=== PATIENT | female | born 1970 | race African-American/Black ===

== ENCOUNTER 2016-12-13 05:44 | Inpatient (IN) | payer OTHER ==
[~2016-12-13] VITALS: Ht 182.9 cm; Wt 106.4 kg
[~2016-12-13 05:44] MED LIST: ANAPROX DS550 M1 PO; ASACOL HD800 MG PO; BENTYL10 MG PO; BUPROPION HCL100 M1 PO; BUPROPION HCL150 MG PO; CARBAMAZEPINE200 M1 PO; CARBATROL-ER300 MG PO; CARDIZEM CD,CA360 MG PO; CARDIZEM CD180 MG PO; CARDIZEM CD360 MG PO; CATAPRES0.1 MG PO; CATAPRES0.2 MG PO; CELEBREX200 MG PO; CENTRUM SILV1 TABLE1 PO; CIPRO500 MG PO; CLONIDINE HCL0.1 MG PO; CLONIDINE HCL0.2 MG PO; CYCLOBENZAPRINE10 M1 PO; DICYCLOMINE HCL20 MG PO; DILAUDID2 MG PO; DILTIAZEM 24HR360 M1 PO; DILTIAZEM 24HR360 MG PO; DOXYCYCLINE HY100 M3 PO; ENDOCET 7.5-321 EACH PO; Ecotrin PO; FAMOTIDINE40 MG PO; FISH OIL 1,0001 EAC7 PO; FLAGYL500 MG PO; FLEXERIL5 MG PO; FLORASTOR250 MG PO; FUROSEMIDE20 MG PO; FUROSEMIDE40 MG PO; Feosol PO; HYOSCYAMINE0.375 MG PO; KENLAOG,ARISTOC60 ML TP; LASIX20 MG PO; LASIX40 MG PO; LEVAQUIN250 MG PO; LEVAQUIN500 MG PO; LEVBID0.375 MG PO; LIDODERM 5% P1 PATCH TD; LITHIUM CARBON300 MG PO; LOPRESSOR100 M1 PO; MEDROL DOSEPAK4 MG PO; MELOXICAM15 MG PO; METOPROLOL SUC100 MG PO; METOPROLOL TAR100 MG PO; METRONIDAZOLE500 MG PO; MINIPRESS2 MG PO; MOBIC15 MG PO; MOBIC7.5 MG PO; MORPHINE SULFAT15 M1 PO; MS CONTIN,ORAMO15 M2 PO; NABUMETONE750 MG PO; NAPROSYN500 MG PO; NAPROXEN500 MG PO; NEURONTIN100 MG PO; NORVASC5 MG PO; OMEPRAZOLE20 MG PO; OMEPRAZOLE40 M1 PO; OXYCODONE-APAP1 EAC6 PO; PERCOCET 10/1 TABLET PO; PERCOCET 5/31 TABLET PO; PERCOCET 7.51 TABLET PO; PHENAZOPYRIDIN100 MG PO; PLAQUENIL200 MG PO; PRAZOSIN HCL2 MG PO; PREDNISONE10 M1 PO; PREDNISONE50 MG PO; PROAIR HFA8.5 GM IH; PYRIDIUM100 MG PO; Percocet 7.5/325,End PO; REGLAN10 MG PO; ROXICODONE5 MG PO; SENOKOT S,PE1 TABLET PO; SEROQUEL XR150 MG PO; SEROQUEL XR200 MG PO; SEROQUEL100 MG PO; SEROQUEL50 MG PO; SERTRALINE HCL100 MG PO; SKELAXIN800 MG PO; TAZTIA XT180 M1 PO; TOPROL XL100 MG PO; TRAZODONE HCL100 MG PO; TRAZODONE HCL150 MG PO; VANTIN100 MG PO; VICODIN,LORT1 TABLET PO; WELLBUTRIN SR150 MG PO; XARTEMIS XR 7.1 EACH PO; XYLOCAINE VISC100 ML MM; ZOFRAN ODT4 MG PO; ZOFRAN4 MG PO; ZOLOFT100 M1 PO; [UNRECOGNIZED DRUG - OTHER] TP
[2016-12-13 06:46] VITALS: BP 134/87
[2016-12-13 16:38] VITALS: BP 142/86
[2016-12-13 20:08] VITALS: BP 161/93
[2016-12-14 02:30] VITALS: BP 140/90
[2016-12-14 06:50] VITALS: BP 148/76
[2016-12-14 08:21] VITALS: BP 160/90
[2016-12-14 16:09] VITALS: BP 144/99
[2016-12-14 19:18] VITALS: BP 113/62
[2016-12-14 21:29] VITALS: BP 112/61
[2016-12-15 00:16] VITALS: BP 115/70
[2016-12-15 08:14] VITALS: BP 124/71
[2016-12-15 13:06] VITALS: BP 134/85
[2016-12-15 17:07] VITALS: BP 129/73
[2016-12-15 23:35] VITALS: BP 136/74
[2016-12-16 07:29] VITALS: BP 122/74
[2016-12-16 11:31] VITALS: BP 122/74
[2016-12-16] MEDS ORDERED: OXYCODONE-APAP1 EAC6 PO (11:58)
== END 2016-12-16 15:00 | disposition home or self-care (01) | DRG 460 ==
LOC: 3EAST 05:44 → 2SOUTH 05:44 → 3EAST 15:48
DX: M43.16 Spondylolisthesis, lumbar region (principal); F33.9 Major depressive disorder, recurrent, unspecified; F17.210 Nicotine dependence, cigarettes, uncomplicated; M06.9 Rheumatoid arthritis, unspecified; M51.16 Intervertebral disc disorders with radiculopathy, lumbar region; E78.00 Pure hypercholesterolemia, unspecified; Z96.653 Presence of artificial knee joint, bilateral; G89.18 Other acute postprocedural pain
CPT/HCPCS: 36415; 72100; 76000; 80048; 85025; 86850; 86900; 86901; C1713; J0131; J0690; J1100; J1170; J1580; J2250; J2405; J2710; J2765; J2930; J3010; J3370; J3480; S0020

== ENCOUNTER 2016-12-18 23:01 | Emergency (ER) | payer OTHER ==
[~2016-12-18] VITALS: Ht 182.9 cm; Wt 108.8 kg
[2016-12-19 02:56] VITALS: BP 144/103
== END 2016-12-19 02:57 | disposition home or self-care (01) ==
LOC: RME 23:01 → EME 23:01 → RME 12-19 02:57
DX: M96.830 Postprocedural hemorrhage of a musculoskeletal structure following a musculoskeletal system procedure (principal); M96.842 Postprocedural seroma of a musculoskeletal structure following a musculoskeletal system procedure; Z98.890 Other specified postprocedural states; Z98.1 Arthrodesis status; I10 Essential (primary) hypertension; F17.200 Nicotine dependence, unspecified, uncomplicated
CPT/HCPCS: 87070; 87075; 87205; 99281; 99284

== ENCOUNTER 2016-12-30 14:12 | Emergency (ER) | payer OTHER ==
[~2016-12-30] VITALS: Ht 182.9 cm; Wt 100.6 kg
[2016-12-30 16:07] LABS: HEMATOCRIT 34.4 % (36.0-46.0); MCH 29.5 PG (29.0-34.0); MCHC 32.6 G/DL (30.0-36.0); MCV 90.5 FL (83-99); MEAN PLAT.VOLUME 10.3 uM^3 (9.5-12.4); RBC DIS.WIDTH-CV 12.9 % (11.8-14.6); RBC DIS.WIDTH-SD 41.9 % (39-53); WHITE BLOOD COUNT 7.9 K/uL (4.1-10.2)
[2016-12-30 16:13] LABS: PLATELET COUNT 365 K/uL (156-360)
[2016-12-30 16:22] LABS: CHLORIDE 105 mEq/L (99-109); SODIUM 138 mEq/L (136-147)
[2016-12-30 16:24] LABS: GLUCOSE 96 mg/dL (70-99)
[2016-12-30 16:25] LABS: ANION GAP 8 MEQ/L (2-14)
[2016-12-30 16:26] LABS: TOTAL BILIRUBIN 0.3 mg/dL (0.0-1.0)
[2016-12-30 16:27] LABS: ALKALINE PHOSPHATASE 90 IU/L (3-129); GFR ESTIMATE (CALCULATED) > 59 mL/min/
[2016-12-30 16:29] LABS: UREA NITROGEN (BUN) 17 mg/dL (9-23)
[2016-12-30 17:09] LABS: ADD MIUA? YES; BILIRUBIN NEGATIVE; BLOOD NEGATIVE; COLOR YELLOW ((YELLOW)); GLUCOSE (STRIP) NEGATIVE; KETONES NEGATIVE; LEUKOCYTES TRACE; NITRITE NEGATIVE; PROTEIN (STRIP) 30; SPECIFIC GRAVITY 1.021 (1.000-1.030); UROBILINOGEN 0.2 MG/DL (0.2-1.0)
[2016-12-30 17:18] LABS: BACTERIA NONE SEEN /HPF; EPITHELIAL CELLS RARE /HPF; HYALINE CASTS 0-5 /LPF; MUCUS 2+ /LPF; RED BLOOD CELLS 0-5 /HPF (0-5); WHITE BLOOD CELLS 0-5 /HPF (0-5)
[2016-12-30] MEDS ORDERED: ROXICODONE5 MG PO (17:34)
[2016-12-30 18:02] VITALS: BP 151/97
[2017-01-03] MEDS ORDERED: OXAYDO7.5 MG PO (11:40)
== END 2016-12-30 18:03 | disposition home or self-care (01) ==
LOC: EME 14:12
PROVIDERS: Nurse Practitioner Family
DX: M54.5 Low back pain (principal); G89.18 Other acute postprocedural pain; I10 Essential (primary) hypertension; K21.9 Gastro-esophageal reflux disease without esophagitis; Z96.653 Presence of artificial knee joint, bilateral; F17.200 Nicotine dependence, unspecified, uncomplicated
CPT/HCPCS: 80053; 81003; 85027; 99281; 99285; J1885; J2405; J3010; J3360; J7030

== ENCOUNTER 2017-01-04 05:02 | Day surgery (SDC) | payer OTHER ==
[~2017-01-04] VITALS: Ht 208.3 cm; Wt 105.3 kg
[~2017-01-04 05:02] MED LIST changes: +OXAYDO7.5 MG PO
[2017-01-04 05:54] VITALS: BP 130/83
[2017-01-04 10:43] LABS: HEMATOCRIT 29.9 % (36.0-46.0); MCH 29.9 PG (29.0-34.0); MCHC 33.1 G/DL (30.0-36.0); MCV 90.3 FL (83-99); MEAN PLAT.VOLUME 10.8 uM^3 (9.5-12.4); PLATELET COUNT 292 K/uL (156-360); RBC DIS.WIDTH-CV 13.3 % (11.8-14.6); RBC DIS.WIDTH-SD 43.8 % (39-53); RED BLOOD COUNT 3.31 M/uL (3.80-5.20); WHITE BLOOD COUNT 7.1 K/uL (4.1-10.2)
[2017-01-04 11:41] LABS: ERTH.SED.RATE 35 MM/HR (0-20)
[2017-01-04 12:18] VITALS: BP 140/83
== END 2017-01-04 15:50 | disposition home or self-care (01) ==
LOC: SDC 05:02 → 2SOUTH 09:48 → 3EAST 12:06 → SDC 14:53 → 3EAST 15:50
PROVIDERS: Neurological Surgery
PROC: 00Q Central Nervous System and Cranial Nerves, Repair (ICD-10-PCS; principal; 2017-01-04)
DX: G96.0 Cerebrospinal fluid leak (principal); Z98.890 Other specified postprocedural states; M54.9 Dorsalgia, unspecified; I10 Essential (primary) hypertension; K21.9 Gastro-esophageal reflux disease without esophagitis; M19.90 Unspecified osteoarthritis, unspecified site; M54.16 Radiculopathy, lumbar region; E78.5 Hyperlipidemia, unspecified
CPT/HCPCS: 85027; 85651; 86140; 87070; 87075; 87205; G0378; J0360; J0690; J1170; J2710; J3010; J3370; J3480; S0020

== ENCOUNTER 2017-01-11 06:10 | Inpatient (IN) | payer OTHER ==
[~2017-01-11] VITALS: Ht 182.9 cm; Wt 110.0 kg
[2017-01-11 12:17] VITALS: BP 139/90
[2017-01-11 13:17] LABS: HEMATOCRIT 31.9 % (36.0-46.0); MCH 29.6 PG (29.0-34.0); MCHC 32.9 G/DL (30.0-36.0); MCV 89.9 FL (83-99); PLATELET COUNT 247 K/uL (156-360); RBC DIS.WIDTH-CV 13.2 % (11.8-14.6); RBC DIS.WIDTH-SD 43.7 % (39-53); RED BLOOD COUNT 3.55 M/uL (3.80-5.20); WHITE BLOOD COUNT 7.3 K/uL (4.1-10.2)
[2017-01-11 13:42] LABS: ANION GAP 11 MEQ/L (2-14); CHLORIDE 101 MEQ/L (99-109); GFR ESTIMATE (CALCULATED) > 59 mL/min/; GLUCOSE 97 mg/dL (70-99); SAMPLE HEMOLYSIS CHECK 0; SAMPLE ICTERIC CHECK 0; SAMPLE LIPEMIA CHECK 0; SODIUM 136 MEQ/L (136-147); UREA NITROGEN (BUN) 9 mg/dL (9-23)
[2017-01-11 14:38] LABS: EOSINOPHIL (%) 16.1 % (0-5); EOSINOPHIL COUNT 1.2 K/uL (0-0.3); HEMATOLOGY COMMENT 1 SMEAR COMPATIBLE; IMMATURE GRANULOCYTE (%) 0.3 % (0.0-0.7); LYMPHOCYTE COUNT 2.8 K/uL (1.0-2.8); MONOCYTE (%) 6.3 % (3-12); MONOCYTE COUNT 0.5 K/uL (0-0.8); NEUTROPHIL (%) 39.5 % (45-76); NEUTROPHIL COUNT 2.9 K/uL (1.8-6.4); PLAT.SUFFICIENCY ADEQUATE
[2017-01-11 21:46] VITALS: BP 177/98
[2017-01-11 23:32] VITALS: BP 144/87
[2017-01-12] VITALS (7 sets, daily range): BP systolic 121–161; BP diastolic 13–96
[2017-01-13 03:36] VITALS: BP 164/93
[2017-01-13 08:31] VITALS: BP 134/77
[2017-01-13 12:01] VITALS: BP 127/80
[2017-01-13] MEDS ORDERED: OXAYDO7.5 MG PO (12:32)
== END 2017-01-13 16:30 | disposition home or self-care (01) | DRG 30 ==
LOC: SDC 06:10 → 2SOUTH 19:30 → 3EAST 21:28
PROVIDERS: Neurological Surgery
PROC: 001U0J6 Bypass Spinal Canal to Peritoneal Cavity with Synthetic Substitute, Open Approach (ICD-10-PCS; principal; 2017-01-11)
DX: G96.0 Cerebrospinal fluid leak (principal); Z98.890 Other specified postprocedural states; K21.9 Gastro-esophageal reflux disease without esophagitis; M06.9 Rheumatoid arthritis, unspecified; F31.9 Bipolar disorder, unspecified; Z96.653 Presence of artificial knee joint, bilateral; G62.9 Polyneuropathy, unspecified; I10 Essential (primary) hypertension; E78.00 Pure hypercholesterolemia, unspecified; F17.210 Nicotine dependence, cigarettes, uncomplicated; K58.9 Irritable bowel syndrome, unspecified
CPT/HCPCS: 74000; 80048; 85025; G0378; J0330; J0690; J1100; J1170; J2175; J2270; J2405; J3010; J3480

== ENCOUNTER 2017-01-25 14:33 | Observation (INO) | payer OTHER ==
[~2017-01-25] VITALS: Ht 193 cm; Wt 103.4 kg
[2017-01-25 15:27] LABS: EOSINOPHIL (%) 5.8 % (0-5); EOSINOPHIL COUNT 0.6 K/uL (0-0.3); HEMATOCRIT 34.8 % (36.0-46.0); IMMATURE GRANULOCYTE (%) 0.3 % (0.0-0.7); INSTRUMENT ABS NEUTROPHIL CT 6.4 K/uL; LYMPHOCYTE COUNT 2.4 K/uL (1.0-2.8); MCH 28.8 PG (29.0-34.0); MCHC 31.9 G/DL (30.0-36.0); MCV 90.2 FL (83-99); MONOCYTE (%) 6.5 % (3-12); MONOCYTE COUNT 0.7 K/uL (0-0.8); NEUTROPHIL (%) 63.5 % (45-76); NEUTROPHIL COUNT 6.4 K/uL (1.8-6.4); RBC DIS.WIDTH-CV 13.2 % (11.8-14.6); RBC DIS.WIDTH-SD 43.5 % (39-53); RED BLOOD COUNT 3.86 M/uL (3.80-5.20)
[2017-01-25 15:33] LABS: PLATELET COUNT 404 K/uL (156-360); WHITE BLOOD COUNT 10.1 K/uL (4.1-10.2)
[2017-01-25 15:36] LABS: CHLORIDE 99 mEq/L (99-109); POTASSIUM 4.2 mEq/L (3.7-5.4); SODIUM 136 mEq/L (136-147)
[2017-01-25 15:38] LABS: GLUCOSE 132 mg/dL (70-99)
[2017-01-25 15:39] LABS: ANION GAP 14 MEQ/L (2-14)
[2017-01-25 15:41] LABS: D-DIMER ELISA 3.85 mg/L FEU (< 0.57); PROTHROMBIN TIME 10.3 (9.2-11.2); PTT 39.3 (25-32)
[2017-01-25 15:42] LABS: GFR ESTIMATE (CALCULATED) > 59 mL/min/
[2017-01-25 15:43] LABS: UREA NITROGEN (BUN) 20 mg/dL (9-23)
[2017-01-25 15:48] LABS: TROP-I INTERPRETATION NEGATIVE; TROPONIN-I < 0.01 ng/mL (0.0-0.30)
[2017-01-25] MEDS ORDERED: NORVASC10 MG PO (17:10)
[2017-01-25] MEDS ORDERED: OXYCODONE HCL10 MG PO (17:11)
[2017-01-25] MEDS ORDERED: FLEXERIL10 MG PO (17:12)
[2017-01-25] MEDS ORDERED: KEFLEX500 MG PO (17:12)
[2017-01-25] MEDS ORDERED: CENTRUM SILVER1 EAC4 PO (17:13)
[2017-01-25 22:21] LABS: TROP-I INTERPRETATION NEGATIVE; TROPONIN-I < 0.01 ng/mL (0.0-0.30)
[2017-01-25 22:27] VITALS: BP 137/83
[2017-01-26 00:45] VITALS: BP 132/86
[2017-01-26 03:24] LABS: TROP-I INTERPRETATION NEGATIVE; TROPONIN-I < 0.01 ng/mL (0.0-0.30)
[2017-01-26 04:30] VITALS: BP 114/71
[2017-01-26 08:49] VITALS: BP 126/72
[2017-01-26 12:10] VITALS: BP 112/68
[2017-01-26 16:54] VITALS: BP 127/81
== END 2017-01-26 19:30 | disposition short-term general hospital (02) ==
LOC: EME 14:33 → EDOF 19:22 → 5WEST 20:44
PROVIDERS: Emergency Medicine; Physician Assistant
DX: R07.9 Chest pain, unspecified (principal); G97.0 Cerebrospinal fluid leak from spinal puncture; I10 Essential (primary) hypertension; F41.9 Anxiety disorder, unspecified; F31.9 Bipolar disorder, unspecified; M19.90 Unspecified osteoarthritis, unspecified site; F17.210 Nicotine dependence, cigarettes, uncomplicated
CPT/HCPCS: 71010; 71275; 80048; 84484; 85025; 85379; 85610; 85730; 93005; 99281; 99285; G0378; J1650; J2270; J2405; J3010

== ENCOUNTER 2017-05-28 12:52 | Emergency (ER) | payer OTHER ==
[~2017-05-28] VITALS: Ht 182.9 cm; Wt 108.0 kg
[~2017-05-28 12:52] MED LIST changes: +CENTRUM SILVER1 EAC4 PO; +FLEXERIL10 MG PO; +KEFLEX500 MG PO; +NORVASC10 MG PO; +OXYCODONE HCL10 MG PO
[2017-05-28] MEDS ORDERED: SKELAXIN800 MG PO (16:48)
[2017-05-28 17:01] VITALS: BP 186/110
== END 2017-05-28 17:00 | disposition home or self-care (01) ==
LOC: EME 12:52
DX: M54.9 Dorsalgia, unspecified (principal); G89.29 Other chronic pain; I10 Essential (primary) hypertension; Z91.14 Patient's other noncompliance with medication regimen; Z96.653 Presence of artificial knee joint, bilateral; F17.200 Nicotine dependence, unspecified, uncomplicated
CPT/HCPCS: 99281; 99284; J3010

== ENCOUNTER 2017-06-14 12:35 | Emergency (ER) | payer OTHER ==
[~2017-06-14] VITALS: Ht 182.9 cm; Wt 107.0 kg
[2017-06-14] MEDS ORDERED: PERCOCET 7.51 TABLET PO (15:22)
[2017-06-14 15:31] VITALS: BP 165/117
== END 2017-06-14 15:33 | disposition home or self-care (01) ==
LOC: RME 12:35 → EME 12:35 → RME 15:33
DX: M54.5 Low back pain (principal); G89.29 Other chronic pain; I10 Essential (primary) hypertension; R20.0 Anesthesia of skin; R35.0 Frequency of micturition; Z96.653 Presence of artificial knee joint, bilateral; F17.200 Nicotine dependence, unspecified, uncomplicated
CPT/HCPCS: 99281; 99283; J2270

== ENCOUNTER 2018-02-14 17:54 | Emergency (ER) | payer OTHER ==
[~2018-02-14] VITALS: Ht 182.9 cm; Wt 122.3 kg
[2018-02-14 18:51] VITALS: BP 151/142
[2018-02-14] MEDS ORDERED: NAPROSYN500 MG PO (20:35)
== END 2018-02-14 20:49 | disposition home or self-care (01) ==
LOC: EME 17:54
DX: S80.12XA Contusion of left lower leg, initial encounter (principal); W50.0XXA Accidental hit or strike by another person, initial encounter; Y93.89 Activity, other specified; I10 Essential (primary) hypertension; I25.10 Atherosclerotic heart disease of native coronary artery without angina pectoris; I50.9 Heart failure, unspecified; M19.90 Unspecified osteoarthritis, unspecified site; F17.200 Nicotine dependence, unspecified, uncomplicated; Z96.652 Presence of left artificial knee joint; Z88.5 Allergy status to narcotic agent; Z88.6 Allergy status to analgesic agent; Z88.8 Allergy status to other drugs, medicaments and biological substances
CPT/HCPCS: 73590; 99281; 99283

== ENCOUNTER 2018-06-16 13:58 | Emergency (ER) | payer OTHER ==
[~2018-06-16] VITALS: Ht 182.9 cm; Wt 117.1 kg
[2018-06-16] MEDS ORDERED: CARVEDILOL3.125 MG PO (17:20)
[2018-06-16] MEDS ORDERED: APRESOLINE10 MG PO (17:21)
[2018-06-16] MEDS ORDERED: SENNA LAXATIVE8.6 MG PO (17:22)
[2018-06-16] MEDS ORDERED: BACLOFEN10 MG PO (18:09)
[2018-06-16] MEDS ORDERED: VOLTAREN 1% GE100 GM TP (18:09)
[2018-06-16] MEDS ORDERED: MOTRIN800 MG PO (18:09)
[2018-06-16] MEDS ORDERED: LIDODERM 5% P1 PATCH TD (18:09)
[2018-06-16 18:30] VITALS: BP 190/124
== END 2018-06-16 18:30 | disposition home or self-care (01) ==
LOC: EME 13:58
DX: M54.42 Lumbago with sciatica, left side (principal); M54.41 Lumbago with sciatica, right side; I11.0 Hypertensive heart disease with heart failure; I50.9 Heart failure, unspecified; F32.9 Major depressive disorder, single episode, unspecified; K21.9 Gastro-esophageal reflux disease without esophagitis; Z86.73 Personal history of transient ischemic attack (TIA), and cerebral infarction without residual deficits; I25.10 Atherosclerotic heart disease of native coronary artery without angina pectoris; Z96.653 Presence of artificial knee joint, bilateral; F17.200 Nicotine dependence, unspecified, uncomplicated; Z88.5 Allergy status to narcotic agent; Z88.6 Allergy status to analgesic agent
CPT/HCPCS: 72100; 99281; 99284; J1885; J3010